=== PATIENT | male | born 2000 | race African-American/Black ===

== ENCOUNTER 2020-11-23 21:38 | Emergency (ER) | payer MEDICAID ==
[~2020-11-23] VITALS: Ht 182.9 cm; Wt 68.2 kg
[2020-11-23] MEDS ORDERED: VISCOUS LIDOCAINE 2% 15 ML UDC PO STA (22:30)
[2020-11-23] MEDS ORDERED: MAGNESIUM/ALUMINUM HYDROXIDE/SIMETHICONE 30ML UDC PO STA (22:30)
[2020-11-23] MEDS ORDERED: DICYCLOMINE 10 MG/5 ML ORAL SYR PO STA (22:30)
[2020-11-23] MEDS ORDERED: ONDANSETRON 4MG ODT PO STA (22:30)
[2020-11-23] MEDS ORDERED: VISCOUS LIDOCAINE 2% 15 ML UDC MM STA (22:55)
[2020-11-24 00:50] VITALS: BP 134/106
== END 2020-11-24 01:06 | disposition home or self-care (01) ==
LOC: ER 23:35
DX: K52.9 Noninfective gastroenteritis and colitis, unspecified (principal); R11.2 Nausea with vomiting, unspecified; F12.10 Cannabis abuse, uncomplicated
CPT/HCPCS: 99284; Q0162